=== PATIENT | male | born 1995 | race African-American/Black ===

== ENCOUNTER 2021-08-02 16:52 | Emergency (ER) | payer MEDICARE, SELFPAY ==
[2021-08-02 16:52] VITALS: BP 105/82; PULSE 108; RESP 16; TEMP 37.2; O2SAT 100; BMI 19.8
--- NOTE | 2021-08-02 17:29 | EX.ED.DYSGE1 ---
HPI History of Present Illness Chief Complaint: Headache Informant: patient Onset/Context/Timing Onset: Today Current Severity: Mild Maximum Severity: Mild Narrative Narrative: Patient woke this morning with headache, body aches, subjective fever. He did not measure his temperature at home. He denies cough but does have shortness of breath. No chest pain. No vomiting or diarrhea. He does feel nauseated. Patient took Tylenol approximate hour and a half prior to arrival. PFSH PFS Medical History no medical history no medical history Allergy/AdvReac Type Severity Reaction Status Date / Time No Known Allergies Allergy Verified 08/02/21 16:55 Social History Smoking Status: Never smoker ROS ROS ED Constitutional Constitutional ED: Reports fever(s) and subjective; Denies chills Eyes Eyes: Denies change in vision ENT ENT ED: Denies sore throat Cardiovascular Cardiovascular: Denies chest pain Respiratory/Chest Respiratory/Chest: Reports dyspnea; Denies cough Gastrointestinal Gastrointestinal: Reports nausea; Denies abdominal pain, diarrhea or vomiting Genitourinary Genitourinary ED: Denies dysuria Musculoskeletal Musculoskeletal: Denies back pain or neck pain Integumentary Denies rash Neurologic Neurologic: Reports headache(s); Denies weakness Psychiatric Psychiatric: Denies anxiety or depression Allergic/Immunologic Allergic/Immunologic ED: Denies urticaria EXAM Physical Exam Const Vital Signs: 08/02/21 16:52 Temperature 98.9 F Temperature Source Oral Pulse Rate 108 H Respiratory Rate 16 Blood Pressure 105/82 H Blood Pressure Mean 89 Pulse Ox 100 Oxygen Delivery Method Room Air Positive well nourished and well developed General Appearance ED: well developed HEENT Reports moist mucous membranes Eyes PERRL and EOMs intact bilaterally Neck supple Chest Wall inspection of chest normal Resp normal respiratory effort and clear to auscultation bilaterally Cardio regular rate and regular rhythm GI non-tender Auscultation: hypoactive bowel sounds Palpation: soft Extremity normal to inspection Neuro oriented x3 Sensorium / Orientation: alert Psych mental status grossly normal Skin no rashes or lesions noted MDM MDM MDM Narrative Medical decision making narrative: Patient given ibuprofen, Reglan, Benadryl for headache. Chest x-ray and Covid swab obtained. Lab Data Attestation: I reviewed the patient's lab results. Labs: Rapid Covid test positive Radiography Chest X-Ray - ED: 1 View, Read by ED Physician, Normal, Heart, Lungs and Mediastinum Diagnostic Testing: Clinical Impression(s) from Imaging Studies Chest X-Ray 08/02/21 17:39 IMPRESSION: Normal x-ray examination of the chest. Electronically Signed: Gabriel Kay MD at 18:47 EST , Service support , Treatment and Re-Evaluation Comments:: Test results discussed with the patient. Covid test is positive. Chest x-ray is clear. At this time he does not meet criteria for monoclonal antibodies. Supportive care as discussed. Return instructions provided. Discharge Plan Triage Chief Complaint: Headache ED Provider: Miracle Thornton Dx/Rx/DC Orders Clinical Impression: COVID-19 Instructions: Coronavirus Disease 2019 (COVID-19): Overview, Coronavirus Disease 2019 (COVID-19): Caring for Yourself or Others Primary Care Provider: Care Physician,No Primary Referrals: Joby Perea MD [STAFF PHYSICIAN] - As Needed Care Physician,No Primary [Primary Care Provider] - Disposition Disposition: Home, Self Care
--- NOTE | 2021-08-02 17:39 | RAD_ITS ---
STUDY: X-RAY CHEST REASON FOR EXAM: Male, 25 years old. sob TECHNIQUE: AP portable COMPARISON: None. FINDINGS: The lungs are clear and expanded. There is no demonstrated pleural abnormality. Normal size heart. Normal mediastinum and darcy. Normal visualized pulmonary arteries. Normal visualized aortic arch and descending thoracic aorta. Normal visualized thoracic spine. Normal visualized ribs, clavicles, and shoulders. There is no demonstrated abnormality of the visualized soft tissue structures of the upper abdomen. RAD/Chest 1 View (Portable) IMPRESSION: Normal x-ray examination of the chest. Electronically Signed: Gabriel Kay MD at 18:47 EST , Service support ,
[2021-08-02] MEDS: Ibuprofen 600 MG Tablet PO (17:40)
[2021-08-02] MEDS: DiphenhydrAMINE 25 MG Capsule 50 MG PO (17:41)
[2021-08-02] MEDS: Metoclopramide 10 MG/10 ML UDC PO (18:26)
[2021-08-02 19:13] VITALS: PULSE 68; RESP 16; O2SAT 97
== END 2021-08-02 19:18 | disposition home or self-care (01) ==
PROVIDERS: Emergency Provider Emergency Medicine
DX: U07.1 COVID-19 (principal)
CPT/HCPCS: 71045; 87426; 99283

== ENCOUNTER 2021-12-07 18:47 | Emergency (ER) | payer MEDICAID, SELFPAY ==
[2021-12-07 18:48] VITALS: BP 115/98; PULSE 76; RESP 16; TEMP 36.1; O2SAT 98; BMI 19.8
--- NOTE | 2021-12-07 19:19 | EDS_ITS ---
HPI History of Present Illness Chief Complaint: Complaint Detail of Chief Complaint: Dysuria and drainage from penis x3 weeks Informant: patient Narrative Narrative: Patient presents to the emergency department complaint of dysuria and drainage from his penis x3 weeks. Patient states that his girlfriend just received her culture results back and she tested positive for gonorrhea and chlamydia he thinks. Patient has been sexually active with her and not using protection. Patient denies any fevers. Denies any abdominal pain. Patient visiting from [place]. Prior similar symptoms: No PFSH PFSH Home Medications albuterol sulfate [ProAir HFA] 2 puff INHALATION Q6H PRN 12/07/21 [History Last Taken Unknown] Allergy/AdvReac Type Severity Reaction Status Date / Time No Known Allergies Allergy Verified 12/07/21 18:51 Social History Smoking Status: Never smoker ROS ROS ED Constitutional Constitutional ED: Reports systems reviewed and no addt'l complaints, except as documented; Denies body ache(s), change in weight or chills Eyes Eyes: Denies acute decrease in peripheral vision, change in vision, double vision or loss of vision ENT ENT ED: Reports none; Denies ear pain, lip swelling, loss taste/smell, neck pain, otalgia or sore throat Cardiovascular Cardiovascular: Reports none; Denies abdominal pain, chest pain with activity, leg edema, lightheadedness, palpitations, rapid heart rate or syncope Respiratory/Chest Respiratory/Chest: Reports none; Denies change in mental status, dry cough, dyspnea, hemoptysis, shortness of breath at rest or shortness of breath with exertion Gastrointestinal Gastrointestinal: Reports none; Denies abdominal pain, change in stool character, diarrhea, hematemesis, hematochezia, melena, rectal bleeding or vomiting Genitourinary Genitourinary ED: Reports none, dysuria and other Details: Yellow drainage from penis ; Denies abdominal discomfort, anuria, genital pain or polyuria Musculoskeletal Musculoskeletal: Reports none; Denies arthralgias, back pain, difficulty walking, extremity pain, muscle weakness or myalgias Integumentary Reports none; Denies abscess or rash Neurologic Neurologic: Reports none; Denies abnormal gait, confusion, focal weakness, frequent falls, headache(s), loss of vision, numbness, paresthesias, radicular pain, vertigo or weakness Psychiatric Psychiatric: Reports systems reviewed and no addt'l complaints, except as documented and none; Denies behavioral changes, confusion, difficulty concentrating, hallucinations, suicidal ideation, tactile hallucinations or visual hallucinations Endocrine Endocrinology: Denies none, cold intolerance, excessive sweating, fatigue or hea t intolerance Hematologic/Lymphatic Hematologic/Lymphatic: Reports none; Denies anemia, easy bleeding or easy bruising Allergic/Immunologic Allergic/Immunologic ED: Denies as per HPI, none, lip swelling, mouth swelling, throat swelling, tongue swelling or hives EXAM Physical Exam Const Vital Signs: 12/07/21 18:48 Temperature 97.0 F L Temperature Source Temporal Pulse Rate 76 Respiratory Rate 16 Blood Pressure 115/98 H Blood Pressure Mean 103 Pulse Ox 98 Oxygen Delivery Method Room Air Positive well nourished and well developed General Appearance ED: well developed and NAD HEENT Reports TM's clear and moist mucous membranes normocephalic and atraumatic; Negative for trauma or tenderness Tympanic Membrane ED: Yes TM's clear Eyes PERRL and EOMs intact bilaterally General Eye ED: Negative for pale conjunctiva or scleral icterus Neck no lymphadenopathy, supple and no JVD General: Negative for tenderness Chest Wall inspection of chest normal and palpation of chest normal Chest: Negative for tenderness Resp normal respiratory effort and clear to auscultation bilaterally Effort and Inspection: Negative for respiratory distress or pain with movement Auscultation: Negative for rhonchi, wheezes or diminished lung sounds Cardio regular rate, regular rhythm, S1 normal heart sound, S2 normal heart sound and no murmurs Peripheral Pulses: pulses 2+ throughout GI normal to inspection, nondistended, normoactive bowel sounds, soft to palpation, non-tender, non-distended and no masses Narrative: Exam deferred Back/Spine no CVA tenderness and no thoracic nor lumbar tenderness Extremity normal to inspection General Extremety ED: Negative for edema General Extremity: Negative for edema Neuro oriented x3, CN's II-XII intact bilaterally, no sensory deficits noted and gait normal Sensorium / Orientation: awake, alert, oriented to person, oriented to place and oriented to time Motor Exam: strength 5/5 throughout and strength abnormal Psych mental status grossly normal Skin no rashes or lesions noted and no wounds MDM MDM MDM Narrative Medical decision making narrative: Patient has known exposure to GC and chlamydia. Clinically I feel the patient likely has gonorrhea chlamydia. Patient will have a urine sent for both. Patient will be treated with Zithromax and Rocephin. Patient to follow-up with his primary care physician in 3 to 5 days. Discharge Plan Triage Chief Complaint: Complaint ED Provider: Tez Bustos Dx/Rx/DC Orders Clinical Impression: Chlamydial urethritis in male Instructions: ED Urethritis Infec Vs Inflam ... Prescriptions: No Action albuterol sulfate [ProAir HFA] 90 mcg/actuation Hfa Aerosol Inhaler 2 puff INHALATION Q6H PRN (Reason: Cough) RF: 0 Primary Care Provider: Care Physician,No Primary Referrals: Care Physician,No Primary [Primary Care Provider] - Disposition Disposition: Home, Self Care
[2021-12-07] MEDS: Azithromycin 250 MG Tablet 1000 MG PO (19:28)
[2021-12-07] MEDS: Ceftriaxone 500 MG Vial 250 MG IM (19:44)
[2021-12-07 22:03] LABS: Chlamydia Trachomatis by PCR POSITIVE (Negative); Neisserai gonorrhoeae by PCR Negative (Negative); Probe Check PASS
--- NOTE | 2021-12-07 22:10 | ED.RN ---
This RN calls patient and clarifies patients name and birthday, given test results of positive chlamydia and negative gonorrhea. Pt was told he already received appropriate treatment and does not need anything further. Pt denies questions at this time.
== END 2021-12-07 20:00 | disposition home or self-care (01) ==
LOC: ED 19:41
PROVIDERS: Emergency Provider Emergency Medicine; Visit Provider Emergency Medicine
DX: A56.01 Chlamydial cystitis and urethritis (principal)
CPT/HCPCS: 87491; 87591; 96372; 99283

== ENCOUNTER 2021-12-21 12:55 | Emergency (ER) | payer MEDICAID, SELFPAY ==
[2021-12-21 12:56] VITALS: BP 132/112; PULSE 89; RESP 16; TEMP 36.6; O2SAT 100; BMI 19.8
--- NOTE | 2021-12-21 13:15 | CT_ITS ---
STUDY: CT BRAIN WITHOUT CONTRAST REASON FOR EXAM: Male, 26 years old. 2 day history of bilateral temporal headaches. History of migraines. RADIATION DOSAGE (If Supplied By Facility): CTDIvol = ( 44.99 ) mGy, DLP = ( 745.49 ) mGycm TECHNIQUE: Transaxial CT imaging of the brain was performed without administration of intravenous contrast material. Individualized dose optimization techniques were used for this CT. COMPARISON: No relevant priors. FINDINGS: Normal soft tissue structures. Normal calvarium. Normal size ventricles and extra-axial spaces for the patient''s age. Normal white matter tracts of the cerebral hemispheres. Normal basal ganglia and thalami. Normal brainstem. Normal cerebellum. There is no intracranial hemorrhage. There are no findings of an acute ischemic infarction. Normal visualized paranasal sinuses. CT/Brain/Head without Contrast IMPRESSION: Normal unenhanced CT scan of the brain. Electronically Signed: Ben Dominguez MD at 14:04 EDT ,
--- NOTE | 2021-12-21 13:18 | EDS_ITS ---
HPI History of Present Illness Chief Complaint: Headache Informant: patient Narrative Narrative: Patient states that he is having by temporal frontal area headache. It started yesterday. It was slow onset. It waxes and wanes but just will not go away. Is not really worsening. It hurts if he moves his head quickly. Bright lights bother it a little bit. Sounds do not bother it as much. He has no numbness tingling weakness. He does report a history of migraines but states his migraines do not normally last this long. It is a similar type of headache but it is longer lasting. Patient also had a fall the day before this. He landed mostly on his buttock. He might of hit the back of his head slightly. But he did not lose consciousness. [facility] Medical History (Updated 12/21/21 @ 15:[address] Scott Sousa MD) Migraine Home Medications albuterol sulfate [ProAir HFA] 2 puff INHALATION Q6H PRN 12/07/21 [History Last Taken Unknown] Allergy/AdvReac Type Severity Reaction Status Date / Time No Known Allergies Allergy Verified 12/21/21 12:57 Social History Smoking Status: Never smoker ROS ROS ED Constitutional Constitutional ED: Denies chills or fever(s) Eyes Eyes: Denies blurry vision, change in vision or diplopia ENT ENT ED: Denies ear pain, rhinorrhea or sore throat Cardiovascular Cardiovascular: Denies chest pain Respiratory/Chest Respiratory/Chest: Denies cough or dyspnea Gastrointestinal Gastrointestinal: Denies abdominal pain, nausea or vomiting Musculoskeletal Musculoskeletal: Denies arthralgias, back pain, myalgias or neck pain Integumentary Denies abscess or rash Neurologic Neurologic: Reports headache(s); Denies paresthesias or weakness Psychiatric Psychiatric: Denies anxiety or depression Endocrine Endocrinology: Denies polydipsia or polyuria Hematologic/Lymphatic Hematologic/Lymphatic: Denies easy bruising Allergic/Immunologic Allergic/Immunologic ED: Denies urticaria EXAM Physical Exam Const Vital Signs: 12/21/21 12:56 12/21/21 15:27 Temperature 97.8 F Temperature Source Temporal Pulse Rate 89 Respiratory Rate 16 Blood Pressure 132/112 H 126/75 H Blood Pressure Mean 118 92 Pulse Ox 100 Oxygen Delivery Method Room Air Positive well nourished and well developed General Appearance ED: well developed and NAD HEENT Reports normocephalic and TM's clear HEENT Narrative: No sign of tenderness. No nasal congestion. No sinus tenderness. Tympanic membranes are normal. No temporal artery tenderness. No dental tenderness. atraumatic; Negative for tenderness Tympanic Membrane ED: Yes TM's clear Eyes PERRL and EOMs intact bilaterally Eyes Narrative: Mild photophobia only. Neck no lymphadenopathy, supple and no meningeal signs Neck Narrative: No meningismus. No lymphadenopathy. Resp normal respiratory effort and clear to auscultation bilaterally Cardio regular rate and regular rhythm GI Palpation: soft Back/Spine no CVA tenderness Neuro oriented x3 Neuro Narrative: Normal coordination and strength as well as peripheral sensation. Sensorium / Orientation: awake and alert Psych mental status grossly normal Skin Lesions: no lesions Rashes: no rashes MDM MDM MDM Narrative Medical decision making narrative: ThisPatient CT shows no acute process. I did recheck the patient. He states he is not feeling his headache at all now. He does have a history of migraines. This was a slow onset headache. It was not worse than his other migraines it was just lasting longer. It has now resolved. CT shows no acute process. Physical exam does not show any acute abnormalities. We did discuss reasons to return. We discussed he needs to have his blood pressure rechecked also. We will also recheck it here. This is pending at this time. But in either case he should follow-up with primary physician for repeat evaluation. Repeat blood pressure was 126/75. Patient will be discharged. Radiography Diagnostic Testing: Clinical Impression(s) from Imaging Studies Brain CT 12/21/21 13:15 IMPRESSION: Normal unenhanced CT scan of the brain. Electronically Signed: Ben Dominguez MD at 14:04 EDT , Discharge Plan Triage Chief Complaint: Headache ED Provider: Scott Sousa Dx/Rx/DC Orders Clinical Impression: Headache Instructions: ED Headache Unspecified Prescriptions: No Action albuterol sulfate [ProAir HFA] 90 mcg/actuation Hfa Aerosol Inhaler 2 puff INHALATION Q6H PRN (Reason: Cough) RF: 0 Primary Care Provider: Care Physician,No Primary Referrals: Trip Busby MD [STAFF PHYSICIAN] - 3-5 Days Care Physician,No Primary [Primary Care Provider] - Activity Restrictions/Additional Instructions: Your blood pressure was slightly elevated here. This should be rechecked and you should follow-up. Disposition Disposition: Home, Self Care
[2021-12-21] MEDS: DiphenhydrAMINE 50 MG/ML Syringe IV (13:28)
[2021-12-21] MEDS: proCHLORPERazine 10 MG/2 ML Vial IV (13:28)
[2021-12-21] MEDS: 0.9% Normal Saline 1,000 ML 999 ML IV (13:29)
[2021-12-21 15:27] VITALS: BP 126/75
== END 2021-12-21 15:35 | disposition home or self-care (01) ==
PROVIDERS: Emergency Provider Emergency Medicine; Visit Provider Emergency Medicine
DX: R51.9 Headache, unspecified (principal)
CPT/HCPCS: 70450; 96361; 96374; 96375; 99283; J7030; A4216